=== PATIENT | male | born 1950 | race Caucasian/White ===

== ENCOUNTER → 2016-05-31 | Outpatient (CLI) | payer BC, MEDICARE | LOC: COL.RAD 05-28 07:30 | DX: Z13.6 Encounter for screening for cardiovascular disorders (principal) ==

== ENCOUNTER → 2019-10-08 | Outpatient (CLI) | payer MEDICARE, BC | LOC: COL.VAS 07:41 | DX: I48.91 Unspecified atrial fibrillation (principal); I08.0 Rheumatic disorders of both mitral and aortic valves ==

== ENCOUNTER 2019-11-13 07:14 | Day surgery (SDC) | payer MEDICARE, BC ==
[~2019-11-13] VITALS: Ht 177.8 cm; Wt 100.0 kg
[2019-11-13 07:33] VITALS: BP 121/70; PULSE 89; TEMP 97.9
[2019-11-13] MEDS ORDERED: SYNTHROID0.175 MG PO (07:36)
[2019-11-13] MEDS ORDERED: COREG 6.256.25 MG/TA PO (07:38)
[2019-11-13] MEDS ORDERED: HYTRIN 5MG C5 MG/CAP PO (07:38)
[2019-11-13] MEDS ORDERED: CENTRUM SILVER1 TAB (07:39)
[2019-11-13] MEDS ORDERED: ONE-A-DAY MEN'S1 TAB PO (07:39)
[2019-11-13] MEDS ORDERED: ELIQUIS 5MG PO (07:40)
[2019-11-13] MEDS ORDERED: MELATONIN5 M1 SL (07:40)
[2019-11-13] MEDS ORDERED: AVEED (07:41)
[2019-11-13 08:12] LABS: CALCIUM 9.1 mg/dL (8.4-10.2); CREATININE, serum 1.13 (0.66-1.25); HEMATOCRIT 49.7 % (42.0-52.0); HEMOGLOBIN 16.4 g/dl (13.5-18.0); MAGNESIUM 2.3 mg/dL (1.6-2.3); MEAN CELL VOLUME 95 fl (80.0-100.0); MEAN CORPUSCULAR HEMOGLOBIN 31 pg (27.0-31.0); MEAN CORPUSCULAR HGB CONC 33 g/dl (33.0-37.0); MEAN PLATELET VOLUME 10.1 fl (7.4-10.4); PLATELET COUNT 145 K/mm3 (130-400); RED BLOOD COUNT 5.24 M/mm3 (4.20-5.60); REDCELL DISTRIBUTION WIDTH-CV 13.8 % (11.5-14.5)
[2019-11-13 08:16] LABS: INR 1.6 (0.8-3.0); PROTHROMBIN TIME 17.7 SECONDS (9.7-12.8)
[2019-11-13 08:19] LABS: PARTIAL THROMBOPLASTIN TIME 44.7 SECONDS (26.0-37.0)
[2019-11-13 08:43] LABS: THYROID STIMULATING HORMONE 1.26 uIU/mL (0.465-4.680)
[2019-11-13] MEDS ORDERED: CORDARONE200 MG/TAB PO ×4 (08:55→09:02)
[2019-11-13 09:05] VITALS: BP 114/60; PULSE 80
--- NOTE | 2019-11-13 09:05 | NUR ---
recieved report from cardioversion, post EKG done, SR. Pt is awake and alert, takes water.
[2019-11-13 09:15] VITALS: BP 116/65; PULSE 82
[2019-11-13 09:30] VITALS: BP 109/55; PULSE 78
--- NOTE | 2019-11-13 09:30 | NUR ---
pt sits up in bed, no c/o, reviewed dischare inst. with pt, on new med to be picked up. Also on activity and followup appt made with verbal understanding.
[2019-11-13 09:45] VITALS: BP 112/82; PULSE 74
--- NOTE | 2019-11-13 10:00 | NUR ---
iv d'c intact, up in room dresssed Pt discharged via w/c to car to at 1020
== END 2019-11-13 10:20 | disposition home or self-care (01) ==
LOC: COL.CAR 07:14
PROVIDERS: Internal Medicine Cardiovascular Disease
DX: I48.19 Other persistent atrial fibrillation (principal); G47.33 Obstructive sleep apnea (adult) (pediatric); E03.2 Hypothyroidism due to medicaments and other exogenous substances; E23.0 Hypopituitarism; E05.00 Thyrotoxicosis with diffuse goiter without thyrotoxic crisis or storm; I11.0 Hypertensive heart disease with heart failure; I50.22 Chronic systolic (congestive) heart failure; I34.9 Nonrheumatic mitral valve disorder, unspecified; Z88.8 Allergy status to other drugs, medicaments and biological substances; Z79.01 Long term (current) use of anticoagulants; Z79.52 Long term (current) use of systemic steroids; Z87.891 Personal history of nicotine dependence; G43.909 Migraine, unspecified, not intractable, without status migrainosus; Z20.828 Contact with and (suspected) exposure to other viral communicable diseases
CPT/HCPCS: J2704; J7120

== ENCOUNTER 2019-12-18 07:00 | Day surgery (SDC) | payer MEDICARE, BC ==
[2019-12-18] VITALS (9 sets, daily range): BP systolic 101–166; BP diastolic 53–84; PULSE 48–58; TEMP 98.1
[~2019-12-18] VITALS: Ht 177.8 cm; Wt 101.1 kg
[~2019-12-18 07:00] MED LIST: AVEED; CENTRUM SILVER1 TAB; CORDARONE200 MG/TAB PO; COREG 6.256.25 MG/TA PO; ELIQUIS 5MG PO; HYTRIN 5MG C5 MG/CAP PO; MELATONIN5 M1 SL; ONE-A-DAY MEN'S1 TAB PO; SYNTHROID0.175 MG PO
[2019-12-18 07:54] LABS: HEMATOCRIT 49.8 % (42.0-52.0); HEMOGLOBIN 16.7 g/dl (13.5-18.0); MEAN CELL VOLUME 95 fl (80.0-100.0); MEAN CORPUSCULAR HEMOGLOBIN 32 pg (27.0-31.0); MEAN CORPUSCULAR HGB CONC 34 g/dl (33.0-37.0); PLATELET COUNT 146 K/mm3 (130-400); RED BLOOD COUNT 5.24 M/mm3 (4.20-5.60); REDCELL DISTRIBUTION WIDTH-CV 14.2 % (11.5-14.5)
[2019-12-18 08:08] LABS: INR 1.1 (0.8-3.0); PROTHROMBIN TIME 12.3 SECONDS (9.7-12.8)
[2019-12-18 08:11] LABS: CALCIUM 9.7 mg/dL (8.4-10.2); CREATININE, serum 1.5 (0.66-1.25); POTASSIUM 3.9 mmol/L (3.4-5.0)
[2019-12-18] MEDS ORDERED: PACERONE400 MG PO ×2 (08:31→10:47)
--- NOTE | 2019-12-18 09:24 | NUR ---
SEE MERGE DOCUMENTATION FOR MEDICATION ADMINISTRATION AND INTRA/POST PROCEDURE ASSESSMENTS.
--- NOTE | 2019-12-18 10:15 | NUR ---
REport from Delmy TOLBERT. Transferred from [facility] Naprapathy by bed. Alert and oriented, denies pain and needs at this time. Right Tband with 12 cc air CD&I, good pulses and cap refill < 3 secs. VSS.
[2019-12-18] MEDS ORDERED: LIPITOR20 MG PO (10:45)
[2019-12-18] MEDS ORDERED: GNC L-ARGININE500 MG PO (10:46)
[2019-12-18] MEDS ORDERED: OMEGA-3 1000 MG1 CAP PO (10:47)
[2019-12-18] MEDS ORDERED: COREG 3.123.125 MG/T PO (10:48)
--- NOTE | 2019-12-18 12:33 | NUR ---
INT discontinued intact. Right Tband deflated of 12 cc air and pressure dressing applied. Discharge instructions given.
--- NOTE | 2019-12-18 12:45 | NUR ---
Transferred to private car by garrick
== END 2019-12-18 12:45 | disposition home or self-care (01) ==
LOC: COL.CAR 07:00
PROVIDERS: Internal Medicine Cardiovascular Disease
DX: I42.0 Dilated cardiomyopathy (principal); I48.19 Other persistent atrial fibrillation; I49.9 Cardiac arrhythmia, unspecified; I11.0 Hypertensive heart disease with heart failure; I50.20 Unspecified systolic (congestive) heart failure; I08.0 Rheumatic disorders of both mitral and aortic valves; E05.00 Thyrotoxicosis with diffuse goiter without thyrotoxic crisis or storm; Z20.828 Contact with and (suspected) exposure to other viral communicable diseases; Z79.01 Long term (current) use of anticoagulants; Z79.899 Other long term (current) drug therapy; Z87.891 Personal history of nicotine dependence; Z88.8 Allergy status to other drugs, medicaments and biological substances
CPT/HCPCS: C1769; J1644; J2250; J3010; Q9967

== ENCOUNTER → 2020-04-07 | Outpatient (CLI) | payer MEDICARE, BC ==
[~2020-04-07] VITALS: Ht 177.8 cm; Wt 101.6 kg
[~2020-04-07] MED LIST changes: -AVEED; +AVEED SQ; +COREG 3.123.125 MG/T PO; +FISH OIL 1000MG1 CAP PO; +GNC L-ARGININE500 MG PO; +LIPITOR20 MG PO; +NEURIVA PO; +OMEGA-3 1000 MG1 CAP PO; +ONE-A-DAY ESSE1 EACH PO; +PACERONE400 MG PO
[2020-04-07 12:58] VITALS: BP 165/95; PULSE 64
[2020-04-07 14:00] VITALS: BP 117/65; PULSE 65
== END ==
LOC: COL.RAD 12:30
DX: M43.16 Spondylolisthesis, lumbar region (principal); M51.26 Other intervertebral disc displacement, lumbar region; M51.36 Other intervertebral disc degeneration, lumbar region; M48.02 Spinal stenosis, cervical region

== ENCOUNTER 2024-01-10 07:15 | Emergency (ER) | payer MEDICARE, BC ==
[~2024-01-10] VITALS: Ht 177.8 cm; Wt 95.5 kg
[2024-01-10 07:20] VITALS: TEMP 98.7
[2024-01-10 08:09] LABS: BASO % 0.3 % (0.0-2.0); EOS % 0.3 % (0.0-4.0); GRAN # 5.4 K/mm3 (1.4-6.5); GRAN % 74.6 % (42.2-75.2); HEMATOCRIT 43.1 % (42.0-52.0); HEMOGLOBIN 14.5 g/dl (13.5-18.0); LYMPH # 0.9 K/mm3 (1.2-3.4); LYMPH % 12.7 % (20.0-51.0); MEAN CELL VOLUME 98 fl (80.0-100.0); MEAN CORPUSCULAR HEMOGLOBIN 33 pg (27-31); MEAN CORPUSCULAR HGB CONC 34 g/dl (33.0-37.0); MEAN PLATELET VOLUME 9.5 fl (7.4-10.4); MONO # 0.8 K/mm3 (0.1-0.6); MONO % 11.5 % (1.7-9.3); PLATELET COUNT 127 K/mm3 (130-400); REDCELL DISTRIBUTION WIDTH-CV 13.7 % (11.5-14.5)
[2024-01-10 08:13] LABS: PROTHROMBIN TIME 21.3 SECONDS (9.7-12.8)
[2024-01-10 08:32] LABS: ALBUMIN 3.4 g/dL (3.4-4.8); BILIRUBIN,TOTAL 0.6 mg/dL (0.2-1.2); CALCIUM 8.3 mg/dL (8.4-10.2); CREATININE, serum 1.59 mg/dL (0.72-1.25); POTASSIUM 3.9 mEq/L (3.5-4.5); TOTAL PROTEIN 6.2 g/dl (6.2-8.1)
[2024-01-10 08:39] LABS: TROPONIN-I 0.03 ng/mL (0.00-0.033)
[2024-01-10 09:51] VITALS: BP 102/52; PULSE 51
== END 2024-01-10 09:49 | disposition home or self-care (01) ==
LOC: COL.ER 07:15
PROVIDERS: Family Medicine
DX: S01.01XA Laceration without foreign body of scalp, initial encounter (principal); W18.30XA Fall on same level, unspecified, initial encounter